=== PATIENT | female | born 1990 | race Caucasian/White ===

== ENCOUNTER 2017-02-14 20:36 | Emergency (ER) | payer OTHER ==
[2017-02-14 20:46] VITALS: BP 107/73; TEMP 98.7
--- NOTE | 2017-02-14 21:05 | C.PDOC ---
History Of Present Illness A 26 y/o F c/o sore throat that began today. States both children is with the same symptoms and both currently being evaluated in the ER. Denies fever or any other URI symptoms. Time Seen by Provider: 02/14/17 20:39 Chief Complaint (Nursing): ENT Problem History Per: Patient History/Exam Limitations: None Onset/Duration Of Symptoms: Hrs Current Symptoms Are (Timing): Still Present Severity: Mild Past Medical History Reviewed: Historical Data, Nursing Documentation, Vital Signs Vital Signs: Last Vital Signs Temp 98.7 F 02/14/17 20:42 Pulse 81 02/14/17 21:08 Resp 17 02/14/17 21:08 BP 107/73 02/14/17 21:08 Pulse Ox 100 02/14/17 21:48 - Medical History PMH: Hypothyroidism Family History: States: Unknown Family Hx - Social History Hx Tobacco Use: Yes Hx Alcohol Use: Yes Hx Substance Use: No - Immunization History Hx Tetanus Toxoid Vaccination: No Hx Influenza Vaccination: No Hx Pneumococcal Vaccination: No Review Of Systems Except As Marked, All Systems Reviewed And Found Negative. Constitutional: Negative for: Fever ENT: Positive for: Throat Pain. Negative for: Ear Pain, Nose Congestion Respiratory: Negative for: Cough Physical Exam - Physical Exam Appears: Non-toxic, No Acute Distress Skin: Warm, Dry Head: Atraumatic, Normacephalic Oral Mucosa: Moist Throat: No Erythema, No Exudate, Other (Enlarged tonsils) Neck: Supple Lymphatic: Adenopathy (Tender submandibular adenopathy) Neurological/Psych: Oriented x3, Normal Speech, Normal Cognition, Other (No focal deficit) ED Course And Treatment O2 Sat by Pulse Oximetry: 100 (RA) Pulse Ox Interpretation: Normal Progress Note: Impression: A 26 y/o F c/o sore throat that began today. Plans: Reassess. pt is in no acute distress and is resting comfortably. Pt was advised to follow up with PMD within 1-2 days if symptoms persists. Disposition - Disposition Referrals: Betito Coombs MD [Primary Care Provider] - Disposition: HOME/ ROUTINE Disposition Time: 21:01 Condition: STABLE Additional Instructions: GARGLE WITH WARM SALT WATER INCREASE FLUIDS TAKE MEDS DIRECTED CLOSE FOLLOW UP WITH PMD RETURN TO ER IF WORSE Prescriptions: Azithromycin [Zithromax] 250 mg PO DAILY #6 tab Instructions: Pharyngitis (ED) Forms: [facility] ([place]) - Clinical Impression Clinical Impression: Pharyngitis - Scribe Statement The provider has reviewed the documentation as recorded by the Scribe Nj [email or web address] All medical record entries made by the Scribe were at my direction and personally dictated by me. I have reviewed the chart and agree that the record accurately reflects my personal performance of the history, physical exam, medical decision making, and the department course for this patient. I have also personally directed, reviewed, and agree with the discharge instructions and disposition.
[2017-02-14 21:10] VITALS: PULSE 81; RESP 17
[2017-02-14 21:45] VITALS: O2SAT 100
== END 2017-02-14 21:10 | disposition home or self-care (01) ==
LOC: SUPCPDRO 20:36 → C.ER 20:36
DX: J02.9 Acute pharyngitis, unspecified (principal)

== ENCOUNTER 2017-11-17 23:26 | Emergency (ER) | payer OTHER ==
[2017-11-17 23:36] VITALS: O2SAT 100
[2017-11-18] MEDS ORDERED: Amoxicillin-Clav 875-125 mg Tab PO STA (00:54)
--- NOTE | 2017-11-18 01:01 | C.PDOC ---
History Of Present Illness 27 yo female come in for evaluation of gradual onset of Left sided facial swelling and pain for past 3 days. Pt reports, pain is mostly over parotid gland , worse with food intake, (+) dry mouth. Otherwise, pt denies fever, chills, severe headache, dizziness, vertigo, earache, toothache or recent dental work, drooling, sore throat, trismus, dyspnea, cough, CP, SOB, denies trauma or injury , denies any other active complaints. Ambulate to Ed for evaluation, not in any apparent distress. Time Seen by Provider: 11/17/17 23:41 Chief Complaint (Nursing): ENT Problem History Per: Patient Onset/Duration Of Symptoms: Gradual Past Medical History Reviewed: Historical Data, Nursing Documentation, Vital Signs Vital Signs: Last Vital Signs Temp 97.9 F 11/17/17 23:33 Pulse 82 11/17/17 23:33 Resp 16 11/17/17 23:33 BP 115/73 11/17/17 23:33 Pulse Ox 100 11/17/17 23:33 - Medical History PMH: Hypothyroidism Family History: States: Unknown Family Hx - Social History Hx Tobacco Use: Yes Hx Alcohol Use: Yes Hx Substance Use: No - Immunization History Hx Tetanus Toxoid Vaccination: No Hx Influenza Vaccination: No Hx Pneumococcal Vaccination: No Review Of Systems Except As Marked, All Systems Reviewed And Found Negative. Constitutional: Negative for: Fever, Chills Eyes: Negative for: Vision Change ENT: Positive for: Mouth Pain, Mouth Swelling. Negative for: Ear Pain, Ear Discharge, Nose Discharge, Throat Pain, Throat Swelling Cardiovascular: Negative for: Chest Pain Respiratory: Negative for: Cough, Shortness of Breath, Wheezing Gastrointestinal: Negative for: Nausea, Vomiting, Abdominal Pain, Diarrhea Genitourinary: Negative for: Dysuria Musculoskeletal: Negative for: Neck Pain Skin: Negative for: Rash Neurological: Negative for: Altered Mental Status, Headache, Dizziness Physical Exam - Physical Exam Appears: Well, Non-toxic, No Acute Distress Skin: Normal Color, Warm, Dry, No Rash Head: Normacephalic Eye(s): bilateral: PERRL Ear(s): Bilateral: Normal Nose: No Flaring, No Discharge Oral Mucosa: Moist, No Drooling, Other (tenderness Left parotid gland with mild diffuse edema. No skin erythema or warmth, no cellulitis, no flactulance.) Tongue: Normal Appearing Lips: Normal Appearing Teeth: No Tender To Palpation Gingiva: No Swelling, No Bleeding, No Abscess Throat: No Erythema, No Drooling Neck: Trachea Midline, Supple, Other ((-) meningeal sign) Cardiovascular: Rhythm Regular, No Murmur, No JVD Respiratory: No Decreased Breath Sounds, No Accessory Muscle Use, No Stridor, No Wheezing Extremity: Normal ROM, No Deformity, No Swelling Neurological/Psych: Oriented x3, Normal Speech ED Course And Treatment O2 Sat by Pulse Oximetry: 100 Pulse Ox Interpretation: Normal Progress Note: On re-evaluation, pt is afebrile, hemodynamicaly stable. non- toxic. Tolerate Po well in ED. PulsEOx 100% RA. ENT: exam c/w left parotid glan tenderness, mild edema. No cellulitis or abscess. Uvula midline, no edmea, no drooling, no trismus. neck: SUpple, (-) meningeal sign. Lungs: CTA B/L, BS equal B/L. Neurologicaly intact. Pt advised on course of ds. ref. to f/u with PMD, ENT In 2 days for re-eavl. return to ED if any worsening or new changes. Disposition Counseled Patient/Family Regarding: Diagnosis, Need For Followup, Rx Given - Disposition Referrals: [facility] [Outside] Disposition: HOME/ ROUTINE Disposition Time: :01 Condition: STABLE Additional Instructions: Encourage fluids Warm compresses to area Lemon juice take medication as prescribed Follow up with PMD, ENT in 2-03 days for re-evaluation. return to ED if any worsening or new changes. Prescriptions: Amoxicillin/Clavulanate [Augmentin 875 MG-125 MG] 1 tab PO BID #14 tab Ibuprofen [Motrin Tab] 600 mg PO Q6 #14 tab Instructions: Parotitis, Salivary Gland Infection - Clinical Impression Clinical Impression: Sialoadenitis
[2017-11-18] MEDS ORDERED: Amoxicillin-Clav 875-125 mg Tab PO ONE (01:05)
[2017-11-18 01:09] VITALS: BP 115/70; PULSE 80; RESP 18; TEMP 98
== END 2017-11-18 01:08 | disposition home or self-care (01) ==
LOC: C.ER 23:26
DX: K11.20 Sialoadenitis, unspecified (principal)